=== PATIENT | male | born 1960 | race Caucasian/White ===

== ENCOUNTER 2024-05-08 13:42 | Inpatient (IN) | payer OTHER ==
[2024-05-08 14:38] VITALS: BMI 21.6
[2024-05-08] MEDS ORDERED: LOPERAMIDE HCL 2 MG CAPSULE PO PRN (14:51)
[2024-05-08] MEDS ORDERED: DICYCLOMINE HCL 10 MG CAPSULE PO PRN (14:51)
[2024-05-08] MEDS ORDERED: POLYETHYLENE GLYCOL (HEALTHYLAX) 3350 17 GM PACKET PO PRN (14:51)
[2024-05-08] MEDS ORDERED: BISMUTH SUBSALICYLATE 524 MG/30 ML PO PRN (14:51)
[2024-05-08] MEDS ORDERED: NICOTINE POLACRILEX 2 MG GUM BUC PRN (14:51)
[2024-05-08] MEDS ORDERED: NICOTINE POLACRILEX 2 MG LOZENGE BC PRN (14:51)
[2024-05-08] MEDS ORDERED: MAG HYDROX/AL HYDROX/SIMETH 30 ML UNIT-DOSE CUP PO PRN (14:51)
[2024-05-08] MEDS ORDERED: guaiFENesin 600 MG TABLET.ER (FP) PO PRN (14:51)
[2024-05-08] MEDS ORDERED: P-EPHED 60MG/TRIPROLIDI 2.5MG TABLET PO PRN (14:51)
[2024-05-08] MEDS ORDERED: IBUPROFEN 600 MG TABLET (FP) PO PRN (14:51)
[2024-05-08] MEDS ORDERED: ACETAMINOPHEN 325 MG TABLET (FP) PO PRN (14:51)
[2024-05-08] MEDS ORDERED: IBUPROFEN 400 MG TABLET (FP) PO PRN (14:51)
[2024-05-08] MEDS ORDERED: TRIMETHOBENZAMIDE HCL 200MG/2ML INJ IM ONE (14:51)
[2024-05-08] MEDS ORDERED: BENZOCAINE/MENTHOL (CHLORASEPTIC ) LOZENGE MM PRN (14:51)
[2024-05-08] MEDS ORDERED: MAGNESIUM HYDROX 2400MG/30ML ORAL SUSPENSION 30 ML CUP PO PRN (14:51)
[2024-05-08] MEDS ORDERED: BENZONATATE 200 MG CAPSULE PO PRN (14:51)
[2024-05-08] MEDS ORDERED: ONDANSETRON *ODT* 4 MG TABLET SL PRN (14:51)
[2024-05-08] MEDS: TRIMETHOBENZAMIDE HCL 200MG/2ML INJ IM ONE (15:00)
[2024-05-08] MEDS: diazePAM 5 MG TABLET PO PRN (15:12)
[2024-05-08] MEDS ORDERED: diazePAM 5 MG TABLET ONE (15:16)
[2024-05-08] MEDS: diazePAM 5 MG TABLET PO SCH (18:02)
[2024-05-08] MEDS: THIAMINE 100 MG TABLET PO SCH (22:39)
[2024-05-08] MEDS: MELATONIN 5 MG TABLETS PO SCH (22:39)
[2024-05-09 07:48] LABS: HEMATOCRIT 39.5 % (35.4-49); HEMOGLOBIN 13.8 GM/dL (11.7-16.9); MCH 39.5 pg (25.7-33.7); MEAN CELL VOLUME 112.9 fl (80-96); MEAN PLT VOLUME 7.5 fl (7.5-11.1); PLATELET COUNT 130 10^3/uL (134-434); RDW 12.7 % (11.9-15.9); WHITE BLOOD COUNT 5.5 K/mm3 (4.0-10.0)
[2024-05-09 08:07] LABS: CHLORIDE 103 mmol/L (98-107); POTASSIUM 4.2 mmol/L (3.5-5.1); SODIUM 138 mmol/L (136-145)
[2024-05-09 08:08] LABS: CALCIUM 9.4 mg/dL (8.5-10.1)
[2024-05-09 08:09] LABS: ALBUMIN 4.2 g/dl (3.4-5.0); ANION GAP 7 mmol/L (4-13); BLOOD UREA NITROGEN 23.4 mg/dL (7-18); CO2 28 mmol/L (21-32); GLUCOSE,RANDOM 142 mg/dL (74-106)
[2024-05-09 08:12] LABS: CREATININE 1.3 mg/dL (0.55-1.3); SGOT/AST 168 U/L (15-37); SGPT/ALT 186 U/L (13-61)
[2024-05-09 08:14] LABS: BILIRUBIN,TOTAL 0.9 mg/dL (0.2-1); TOT PROT 7.8 g/dl (6.4-8.2)
[2024-05-09 08:16] LABS: ALK PHOS 94 U/L (45-117)
[2024-05-09] MEDS: PRENATAL VITAMINS W/ FOLIC ACID TABLET (FP) PO SCH (10:12)
[2024-05-09] MEDS: BICTEGRAV/EMTRICIT/TENOFOV (BIKTARVY) 50-200-25 MG TABLET PO SCH (12:21)
[2024-05-09] MEDS: ATENOLOL 50 MG TABLET (FP) PO SCH (12:21)
[2024-05-09] MEDS: LOSARTAN POTASSIUM 50 MG TABLET PO SCH (12:21)
[2024-05-09] MEDS: metFORMIN HCL 500 MG TABLET (FP) PO SCH (17:29)
[2024-05-10] MEDS: diazePAM 5 MG TABLET PO SCH (05:13)
[2024-05-10 11:19] LABS: HEMATOCRIT 33.6 % (35.4-49); HEMOGLOBIN 11.9 GM/dL (11.7-16.9); MCH 39.8 pg (25.7-33.7); MCHC 35.5 g/dl (32.0-35.9); MEAN CELL VOLUME 112.2 fl (80-96); MEAN PLT VOLUME 8.1 fl (7.5-11.1); PLATELET COUNT 84 10^3/uL (134-434); RDW 12.9 % (11.9-15.9); WHITE BLOOD COUNT 2.5 K/mm3 (4.0-10.0)
[2024-05-10] MEDS: METHOCARBAMOL 500 MG TABLET PO PRN (22:11)
[2024-05-11] MEDS: diazePAM 5 MG TABLET PO SCH (05:43)
[2024-05-12 06:06] VITALS: RESP 16
[2024-05-12] MEDS: diazePAM 5 MG TABLET PO ONE (06:11)
[2024-05-12 09:03] VITALS: BP 145/90; PULSE 67; TEMP 97.7
== END 2024-05-12 09:10 | disposition home or self-care (01) | DRG 897 ==
LOC: YASAS 13:42 → Y3N 15:34
PROVIDERS: ADMIT Allergy & Immunology; ATTEND Surgery
PROC: HZ2ZZZZ Detoxification Services for Substance Abuse Treatment (ICD-10-PCS; principal; 2024-05-08)
DX: F10.230 Alcohol dependence with withdrawal, uncomplicated (principal); F17.210 Nicotine dependence, cigarettes, uncomplicated; I10 Essential (primary) hypertension; E11.9 Type 2 diabetes mellitus without complications; Z79.84 Long term (current) use of oral hypoglycemic drugs; R76.8 Other specified abnormal immunological findings in serum
CPT/HCPCS: 36415; 80053; 80305; 80307; 82962; 83036; 85027; 86593; 86780; 86803; 93005; 93010